=== PATIENT | male | born 1985 | race Two or more races ===

== ENCOUNTER 2018-08-24 14:07 | Emergency (ER) | payer OTHER ==
[~2018-08-24] VITALS: Ht 180.3 cm; Wt 87.7 kg
[2018-08-24] MEDS ORDERED: IBUPROFEN 800 MG TABLET PO ONE (15:30)
[2018-08-24] MEDS ORDERED: PLEASE ENTER ALLERGIES MC SCH (15:30)
[2018-08-24] MEDS ORDERED: IBUPROFEN 200 MG TABLET ONE (15:34)
--- NOTE | 2018-08-24 15:35 | NUR ---
PT IN CT.
[2018-08-24 16:27] VITALS: BP 118/79
== END 2018-08-24 16:29 | disposition home or self-care (01) ==
LOC: ED 15:18
DX: S43.61XA Sprain of right sternoclavicular joint, initial encounter (principal); W31.89XA Contact with other specified machinery, initial encounter; Y93.89 Activity, other specified; Y92.89 Other specified places as the place of occurrence of the external cause; Y99.8 Other external cause status
CPT/HCPCS: 71250; 99284

== ENCOUNTER 2019-08-06 10:32 | Emergency (ER) | payer OTHER ==
[~2019-08-06] VITALS: Ht 180.3 cm; Wt 88.4 kg
--- NOTE | 2019-08-06 10:54 | NUR ---
THIS IS A 34 YO MALE COMING IN WITH C/O "TWO MONTHS AGO HAVE CHEST PAIN", PT STATES, "I ATE STEAK BEEF AND IT HURT ALOT (WHEN PAIN STARTED TWO MONTHS AGO)", PAIN DISSIPATED AND HAS NOW COME BACK. PAIN IS LOCATED IN RIGHT UPPER QUADRANT AND EPIGASTRIC AREAS, TENDER TO PALPATION DESCRIBED STABBING PAIN AND INTERMITTENT. STATES SOB WHEN PAIN COMES ON. PT DENIES N/V/D. DENIES COUGH. PATIENT SPEAKING IN FULL SENTENCES, VSS, ALL MONITORING IN PLACE, NSR ON MONITOR. CALL LIGHT IN REACH.
[2019-08-06] MEDS ORDERED: MAALOX/HYOSCYAMINE/LIDOCAINE 45 ML BTL ONE (10:57)
[2019-08-06] MEDS ORDERED: MAALOX/HYOSCYAMINE/LIDOCAINE 45 ML BTL PO ONE (11:00)
--- NOTE | 2019-08-06 11:03 | NUR ---
PATIENT MEDICATED PER EMAR, TOLERATED WELL. XRAY TO ROOM
--- NOTE | 2019-08-06 11:30 | NUR ---
PATIENT BACK FROM ULTRASOUND
[2019-08-06 11:35] VITALS: BP 126/93
[2019-08-06 11:38] LABS: MEAN CORPUSCULAR HEMOGLOBIN 29.9 pg (27.5-34.5); MEAN CORPUSCULAR HGB CONC 33.4 g/dL (33.2-36.2); MEAN CORPUSCULAR VOLUME 89.3 fL (81-97); MEAN PLATELET VOLUME 8.7 fL (7.4-10.4); PLATELET COUNT 209 x10^3/uL (130-400); RED BLOOD COUNT 5.24 x10^6/uL (4.38-5.82)
[2019-08-06 11:39] LABS: CHLORIDE 109 mmol/L (98-107)
[2019-08-06 11:45] LABS: ALBUMIN 3.9 g/dL (3.4-5.0); ANION GAP 5 mmol/L (5-15); CALCIUM 8.7 mg/dL (8.5-10.1)
[2019-08-06 12:02] LABS: ALANINE AMINOTRANSFERASE 28 U/L (12-78); ALKALINE PHOSPHATASE 63 U/L (45-117); BILIRUBIN,TOTAL 0.8 mg/dL (0.2-1.0); CREATININE 1.15 mg/dL (0.7-1.3); TOTAL PROTEIN 7.3 g/dL (6.4-8.2); TROPONIN I < 0.015 ng/mL (0.000-0.045)
[2019-08-06 12:05] LABS: BASOPHILS # (AUTO) 0.03 x10^3/uL (0-0.1); BASOPHILS % (AUTO) 1 % (0-1); EOSINOPHILS # (AUTO) 0.09 x10^3/uL (0-0.4); EOSINOPHILS % (AUTO) 3 % (1-7); LYMPHOCYTES # (AUTO) 1.58 x10^3/uL (1-3.4); LYMPHOCYTES % (AUTO) 42 % (22-44); MD MORPH REVIEW ONLY; MONOCYTES % (AUTO) 8 % (2-9); NEUTROPHILS # (AUTO) 1.72 x10^3/uL (1.8-6.8); NEUTROPHILS % (AUTO) 46 % (42-75)
[2019-08-06 12:06] LABS: ANISOCYTOSIS 1+
[2019-08-06 12:07] LABS: <PLATELET ESTIMATE> ADEQUATE; <PLT MORPHOLOGY> NORMAL PLT MORPH; PMNS WITH VACUOLES 1+
--- NOTE | 2019-08-06 12:08 | NUR ---
PATIENT AMBULATORY WITH STEADY GAIT TO RESTROOM
--- NOTE | 2019-08-06 12:11 | NUR ---
Patient given discharge instructions and they have confirmed that they understand the instructions. Patient ambulatory with steady gait.
== END 2019-08-06 12:16 | disposition home or self-care (01) ==
LOC: ED 11:12
DX: K29.00 Acute gastritis without bleeding (principal)
CPT/HCPCS: 36415; 71045; 76700; 80053; 83690; 84484; 85025; 93005; 99285

== ENCOUNTER 2020-06-10 21:31 | Emergency (ER) | payer OTHER ==
[~2020-06-10] VITALS: Ht 180.3 cm; Wt 90.9 kg
[2020-06-10 21:32] VITALS: BP 133/89
[2020-06-10] MEDS ORDERED: LIDOCAINE-MPF 1%, 5ML INFIL ONE (22:00)
[2020-06-10] MEDS ORDERED: L.E.T SOLUTION TP ONE ×2 (22:00→22:10)
[2020-06-10] MEDS ORDERED: LIDOCAINE-MPF 1%, 5ML ONE (22:18)
[2020-06-10] MEDS ORDERED: NEOSPORIN OINT. PKT 1 PACKET ONE (22:40)
== END 2020-06-10 23:25 | disposition home or self-care (01) ==
LOC: ED 21:50
DX: S61.511A Laceration without foreign body of right wrist, initial encounter (principal); X58.XXXA Exposure to other specified factors, initial encounter; Y93.89 Activity, other specified; Y92.89 Other specified places as the place of occurrence of the external cause; Y99.8 Other external cause status
CPT/HCPCS: 12041; 99284